=== PATIENT | female | born 1955 | race African-American/Black ===

== ENCOUNTER 2025-06-10 06:14 | Emergency (ER) | payer MEDICAID ==
[~2025-06-10] VITALS: Ht 157.5 cm; Wt 64.0 kg
[2025-06-10 06:18] VITALS: O2SAT 97
[2025-06-10 07:27] LABS: BASOPHILS % 0.7 % (0.0-2.0); EOSINOPHILS % 1.8 % (0.0-5.0); HEMATOCRIT. 38.9 % (36.0-48.0); HEMOGLOBIN. 12.4 g/dL (12.0-16.0); LYMPHOCYTES % 45.8 % (20.0-50.0); MEAN PLATELET VOLUME 9.0 fl (7.4-10.4); MONOCYTES % 5.3 % (2.0-8.0); NEUTROPHILS % 46.4 % (40.0-76.0); PLATELET 265 x1000/uL (130-400); RED BLOOD CELL COUNT 4.23 mill/uL (4.2-5.4); RED CELL DISTRIBUTION WIDTH 12.8 % (11.6-14.6)
[2025-06-10 07:41] LABS: INR 0.9
[2025-06-10 07:45] LABS: CREATININE 1.1 mg/dL (0.6-1.0); UREA NITROGEN BLOOD 10.0 mg/dL (9-23)
[2025-06-10 07:46] LABS: TROPONIN I HIGH SENSITIVITY 5 ng/L (3.0-34)
[2025-06-10] MEDS: MAGNESIUM/ALUMINUM HYDROXIDE/SIMETHICONE 30ML UDC PO ONE (11:11)
[2025-06-10] MEDS: ACETAMINOPHEN 500MG TABLET PO ONE (11:12)
[2025-06-10] MEDS: INSULIN LISPRO 100 UNITS/ML SUBCUT ONE (11:13)
[2025-06-10] MEDS: KETOROLAC 15MG/ML VIAL IV ONE (11:18)
[2025-06-10] MEDS: LACTATED RINGERS 1,000 ML IV SCH (11:19)
[2025-06-10 12:28] LABS: TROPONIN I HIGH SENSITIVITY 4 ng/L (3.0-34)
[2025-06-10] MEDS ORDERED: METF-416 MT (12:49)
[2025-06-10] MEDS ORDERED: ESOM20CA49 MT (12:49)
[2025-06-10] MEDS ORDERED: MAG-55 MT (12:49)
[2025-06-10 13:08] VITALS: BP 144/77; PULSE 89; RESP 18; TEMP 36.8; O2SAT 100
== END 2025-06-10 13:18 | disposition home or self-care (01) ==
LOC: ER 06:14
DX: R07.89 Other chest pain (principal); E86.0 Dehydration; E11.65 Type 2 diabetes mellitus with hyperglycemia; R06.02 Shortness of breath; Z79.84 Long term (current) use of oral hypoglycemic drugs
CPT/HCPCS: 99285; 96374; 71045; 96361; 80048; 83880; 85025; 85379; 85610; 84484; 36415; 93005; 96372; J1885; J1815